=== PATIENT | male | born 1995 | race Asian ===

== ENCOUNTER 2022-05-13 13:13 | Emergency (ER) | payer MEDICAID ==
[~2022-05-13] VITALS: Ht 167.6 cm; Wt 104.5 kg
[2022-05-13 13:58] VITALS: BP 135/97
== END 2022-05-13 15:23 | disposition home or self-care (01) ==
LOC: ER 13:14
DX: U07.1 COVID-19 (principal); Z20.822 Contact with and (suspected) exposure to COVID-19
CPT/HCPCS: 87635; 99283; C9803